=== PATIENT | female | born 1955 | race Caucasian/White ===

== ENCOUNTER → 2016-08-13 | Outpatient (CLI) | payer BC ==
--- NOTE | 2016-08-13 20:31 | Diagnostic Imaging Report ---
INDICATION: Prior BI-RADS 3 mammogram. Unilateral left digital mammography with computer-assisted detection is performed. COMPARISON: 02/22/2016, 02/06/2016, 01/31/2015, 01/25/2014, 01/19/2013. The current study was also evaluated with a Computer Aided Detection (CAD) system. FINDINGS: The left breast is composed of a mild amount of dense breast tissue. Small nodular densities are visible in the breasts, mostly medial and subareolar. These do not show any worrisome change in the interval. There is no architectural distortion or suspicious calcification. Targeted ultrasound of the medial one-half of the breast in the subareolar region showed small simple cysts. IMPRESSION: 1. No malignant findings. Patient will be due for bilateral mammography 02/05/2017. ACR BI-RADS Category 3: Probably benign findings. Result letter will be mailed to the patient. Note: At least 10% of breast cancer is not imaged by mammography. Dictated by: Dictated on workstation # [id number]
--- NOTE | 2016-08-13 20:35 | Diagnostic Imaging Report ---
PROCEDURE: US Breast limited, left. TECHNIQUE: Multiple realtime grayscale images were obtained over the left breast in various projections. INDICATION: Abnormal mammogram. Multiple real-time grayscale images are obtained through the subareolar region in the medial left breast. COMPARISON: 02/22/2016. Several small cysts were identified. None of these had any malignant features. They appear to be simple cysts. IMPRESSION: 1. Multiple very small simple cysts of the right breast. Dictated by: Dictated on workstation # [id number]
== END ==
LOC: RAD 10:30
PROVIDERS: ATTEND Family Medicine
DX: N60.01 Solitary cyst of right breast (principal)
CPT/HCPCS: 76642; G0206